=== PATIENT | male | born 1980 | race Caucasian/White ===

== ENCOUNTER 2018-02-03 20:24 | Emergency (ER) | payer OTHER ==
[~2018-02-03] VITALS: Ht 180.3 cm; Wt 77.1 kg
[~2018-02-03 20:24] MED LIST: ATARAX,VISTARIL50 MG PO; Nicotrol 10MG I1 BOX INH; QUETIAPINE FUMA25 MG PO; ZOFRAN 4 MG ED2 TAB PO
[2018-02-03] MEDS ORDERED: REESE'S PI50 MG/1 ML PO (20:41)
[2018-02-03] MEDS ORDERED: ELIMITE 5%60 GM T (20:41)
== END 2018-02-03 20:50 | disposition home or self-care (01) ==
LOC: ED 20:24
DX: L98.8 Other specified disorders of the skin and subcutaneous tissue (principal); Z87.891 Personal history of nicotine dependence

== ENCOUNTER 2018-09-12 15:18 | Emergency (ER) | payer OTHER ==
[~2018-09-12] VITALS: Ht 180.3 cm; Wt 72.6 kg
[~2018-09-12 15:18] MED LIST changes: +ELIMITE 5%60 GM T; +REESE'S PI50 MG/1 ML PO
[2018-09-12 15:42] LABS: BASO % 0.7 % (0.0-1.0); EOS # 0.2 10*3/uL (0.0-0.4); HEMATOCRIT 39.1 % (42.0-52.0); HEMOGLOBIN 12.9 g/dl (14.0-18.0); MEAN CELL VOLUME 92.7 fl (80.0-94.0); MEAN CORPUSCULAR HGB 30.6 pg (27.0-31.0); MEAN PLATELET VOLUME 9.1 fl (9.6-12.3); MONO # 0.7 10*3/uL (0.1-1.0); MONO % 12.5 % (3.0-9.0); NEUT # 2.9 10*3/uL (2.3-7.9); NEUT % 49.5 % (47.0-73.0); PLATELET COUNT AUTOMATED 208 10*3/uL (130-400); RED BLOOD COUNT 4.22 10*6/uL (4.50-5.90); WHITE BLOOD COUNT 5.9 10*3/uL (4.8-10.8)
[2018-09-12 15:59] LABS: ALBUMIN 3.3 gm/dl (3.1-4.5); ALKALINE PHOSPHATASE 125 U/L (45-117); BUN 11 mg/dl (7-24); CHLORIDE 108 mmol/L (98-107); CREATININE 0.75 mg/dL (0.70-1.30); SGOT/AST 39 IU/L (3-35); SGPT/ALT 87 U/L (12-78); SODIUM 141 mmol/L (136-145); TOTAL PROTEIN 7.1 gm/dL (6.4-8.2)
[2018-09-12 16:06] LABS: ETHYL ALCOHOL < 3.0 mg/dl (<3)
== END 2018-09-12 16:05 | disposition left against medical advice (07) ==
LOC: ED 15:18
PROVIDERS: Emergency Medicine
DX: F22 Delusional disorders (principal); F19.10 Other psychoactive substance abuse, uncomplicated; R21 Rash and other nonspecific skin eruption; F20.9 Schizophrenia, unspecified; F31.9 Bipolar disorder, unspecified; K21.9 Gastro-esophageal reflux disease without esophagitis; F17.200 Nicotine dependence, unspecified, uncomplicated

== ENCOUNTER 2018-09-12 19:05 | Emergency (ER) | payer OTHER ==
[~2018-09-12] VITALS: Wt 72.6 kg
[2018-09-12 20:16] LABS: BILIRUBIN NEGATIVE (NEGATIVE); BLOOD NEGATIVE (NEGATIVE); CLARITY CLEAR (CLEAR); COLOR YELLOW (YELLOW); GLUCOSE NEGATIVE (NEGATIVE); KETONE NEGATIVE (NEGATIVE); LEUKO ESTERASE NEGATIVE (NEGATIVE); NITRITE NEGATIVE (NEGATIVE); UROBILINOGEN 0.2 E.U./dl (0.2-1.0)
[2018-09-12 20:23] LABS: URINE AMPHETAMINES > 1000 (1000ng/ml); URINE BARBITURATES < 200 (200ng/ml); URINE BENZODIAZEPINES < 200 (200ng/ml); URINE CANNABINOIDS (THC) < 50 (50ng/ml); URINE COCAINE < 300 (300ng/ml); URINE METHADONE < 300 (300ng/ml); URINE OPIATES < 300 (300ng/ml)
[2018-09-12 20:25] LABS: URINE PHENCYCLIDINE < 25 (25ng/ml)
[2018-09-12 20:30] LABS: RBC 0-2 rbc/hpf (0-2); WBC 0-2 wbc/hpf (0-5)
[2018-09-12 20:31] LABS: BACTERIA TRACE; EPITHELIAL CELLS 0-2
== END 2018-09-12 21:35 | disposition left against medical advice (07) ==
LOC: ED 19:05
PROVIDERS: Emergency Medicine Emergency Medical Services
DX: F22 Delusional disorders (principal); F19.10 Other psychoactive substance abuse, uncomplicated; K21.9 Gastro-esophageal reflux disease without esophagitis; F17.200 Nicotine dependence, unspecified, uncomplicated